=== PATIENT | female | born 2005 | race Two or more races ===

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

== ENCOUNTER 2025-01-06 13:59 | Outpatient (AMB) | payer BC, SELFPAY ==
--- NOTE | 2025-01-06 14:02 | A.OFFVIS_ITS ---
Vital Signs 01/06/25 14:24 Height 4 ft 9 in Weight 152 lb BMI 32.9 BP 139/92 H Blood Pressure Location Lt brachial Position Sitting Pulse 66 Intake Visit Reasons: Pilonidal cyst ( pt) Intake Note: Patient of Dr Souza is seen in office for evaluation of a pilonidal cyst. 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 She reports a previous surgical procedure performed in [place] many years ago where she was told the pilonidal cyst was excised. Since this time she has had several episodes of drainage and pain from the pilonidal cyst but never required any further incision and drainage. She does occasionally have the hair cut from the intergluteal cleft but continues to have occasional discomfort. As she is still in school she is looking for options short of surgery to decrease the symptoms. She currently denies any drainage, fever or chills. [facility] Medical History Infected pilonidal cyst Social History Alcohol intake: never Patient Tobacco Use Status: Never used Tobacco Review of Systems Const All systems reviewed & are unremarkable except as noted in HPI and below Physical Exam Vital Signs: Last Vital Signs Pulse 66 01/06/25 14:24 BP 139/92 H 01/06/25 14:24 BMI result Body Mass Index 32.9 Const General: cooperative and no acute distress Nutritional Appearance: well nourished Orientation/consciousness: patient oriented x3 Limitations: no limitations HEENT Head: Yes normocephalic and Yes atraumatic Ears: hearing grossly normal bilaterally Resp Effort & Inspection: normal respiratory effort, no audible wheezes, no cough and no respiratory distress Cardio Jugular venous distension: no JVD GI Inspection: Yes normal to inspection Back/Spine/Pelvis Other: Well-healed incision noted in the mid intergluteal cleft. Approximately 3 divots are identified in the midline below this with some longer hair noted around the cleft. No active infection is noted at this time. Skin Other: Warm, dry, no rash Neuro General: patient oriented x3 Extrem General: Yes no clubbing, cyanosis or edema Assessment & Plan Assessment & Plan (1) Pilonidal cyst of tanja cleft: Code(s): L05.91 - Pilonidal cyst without abscess Category: Medical Plan The patient currently has no evidence of active pilonidal cyst infection. There is scar tissue from a previous procedure but no palpable fluid collection, abscess, erythema or discharge. There is hair that may cause some irritation surrounding the cleft. We discussed possible laser depilatory treatments which may be helpful. I would not recommend surgical excision at this time as her skin is in very good condition. She is welcome to call for any new concerns. Coding Level of Care Code Est Pt Level 3 (69954) Diagnoses Pilonidal cyst of cleft L05.91
[2025-01-06 14:24] VITALS: BP 139/92; PULSE 66; BMI 32.9
== END 2025-01-06 14:38 | disposition home or self-care (01) ==
LOC: HO.HGS 13:59
PROVIDERS: Visit Provider Surgery
DX: L05.91 Pilonidal cyst without abscess (principal)
CPT/HCPCS: 99213